=== PATIENT | female | born 1955 | race Caucasian/White ===

== ENCOUNTER 2019-01-15 08:04 | Day surgery (SDC) | payer OTHER ==
[~2019-01-15] VITALS: Ht 170.2 cm; Wt 64.2 kg
[2019-01-15] VITALS (11 sets, daily range): BP systolic 95–131; BP diastolic 47–63; PULSE 62–68; RESP 16–29; Ht 170.2 cm; Wt 64.2 kg
[~2019-01-15 08:04] MED LIST: ATORVASTATIN; CA+; MULTIVITAMIN
[2019-01-15] MEDS ORDERED: PROPOFOL 40 ML ONE (10:26)
[2019-01-15] MEDS ORDERED: LIDOCAINE 2% (SDV) 5 ML INJ ONE (10:26)
[2019-01-15] MEDS ORDERED: ONDANSETRON 4 MG INJ IV PRN (10:30)
[2019-01-15] MEDS ORDERED: morphine 2 MG INJ IV PRN (10:30)
== END 2019-01-15 14:04 | disposition home or self-care (01) ==
LOC: EDSEX 08:04 → GIL 08:04
PROVIDERS: ATTEND Internal Medicine Gastroenterology
DX: Z12.11 Encounter for screening for malignant neoplasm of colon (principal)
CPT/HCPCS: 45378; Z7610